=== PATIENT | male | born 2000 | race Caucasian/White ===

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

== ENCOUNTER 2022-01-03 13:54 | Emergency (ER) | payer MEDICAID, SELFPAY ==
[2022-01-03 14:14] VITALS: BP 134/73; PULSE 104; RESP 18; TEMP 36.6; O2SAT 97; BMI 16.9
--- NOTE | 2022-01-03 17:02 | ED.UPPEXIN ---
HPI - Extremity Injury (Upper) General Chief Complaint: Extremity Problem Stated Complaint: r middle finger inj Time Seen by Provider: 01/03/22 17:01 Source: patient Mode of arrival: ambulatory Limitations: no limitations History of Present Illness HPI narrative: 21-year-old male presents to the ER for evaluation of right middle finger nail bruising and detachment after he accidentally shot his finger in a door last week. He was seen here on 12/31, had negative x-rays. He was started on antibiotics for an early cellulitis. He has been taking them as directed. He reports since then he has had worsening swelling, pain and he can feel that the nail is detached from the nail bed. He is worried about ongoing infection and only has 1 day left of antibiotics. 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 He has not been wearing gloves at work. No new injuries. complaint: injury to: right and finger Onset (ago): day(s) Other Extremity Injury: right: fingers (Middle finger) Handedness: right Severity: moderate Severity scale (1-10): 7 Relieving factors: immobilization and other (Elevation) Exacerbating factors: movement of extremity Context: crush and injury Associated symptoms: denies other symptoms Related Data Previous Rx's Medication Instructions Recorded cephalexin 500 mg capsule 500 mg PO BID #14 caps 12/31/21 cephalexin 500 mg capsule 500 mg PO QID 5 days #20 caps 01/03/22 Allergies Allergy/AdvReac Type Severity Reaction Status Date / Time No Known Allergies Allergy Verified 12/31/21 17:50 Review of Systems Review of Systems: Constitutional: No Fever, No Chills Cardiovascular: No Chest Pain, No SOB Gastrointestinal: No Nausea, No Vomiting Musculoskeletal: + joint pain, No Myalgias Skin: No Skin Lesions, No rash Neuro: No Weakness, No Numbness, No Dizziness, No Headache Psych: + Anxiety/Panic, No Depression Heme/Lymph: + Bruising, No Lymphadenopathy PMFSH Social History Social History Advance Directives: No Advance Directives Information Provided: No Physical Exam Vital Signs: Vital Signs: Last Vital Signs Temp 98 F 01/03/22 14:14 Pulse 104 H 01/03/22 14:14 Resp 18 01/03/22 14:14 BP 134/73 01/03/22 14:14 Pulse Ox 97 01/03/22 14:14 O2 Del Method 01/03/22 14:14 BMI result Body Mass Index 16.9 Appearance: Alert. Oriented X3. No acute distress. HEENT: normal inspection CVS: Normal heart rate and rhythm. Pulses normal. Respiratory: No respiratory distress. Skin: Skin warm and dry. Normal skin color. Normal skin turgor. No rashes. Extremities: Left middle finger with moderate generalized swelling of the tip of the right finger, generalized ecchymosis involving the entire nail, extending laterally beyond the nail, swelling at the insertion of the nail bed with fluctuance and palpable mobile nail bed. Neuro: Oriented X 3. No motor deficit. No sensory deficit. Course Course Course Narrative: 21-year-old male presents to the ER for evaluation of ongoing and worsening left middle finger pain, swelling and bruising after he got his hand slammed in a door 6 days ago. X-ray on the showed no acute fracture. He has had worsening pain and swelling. On exam there is blood collections lateral to the nail bed and at the proximal nail bed. He can not palpate the nailbed is detached under the skin. Procedures Nail Trephination Time out: Yes Location (finger): right and middle Sterile prep: betadine Method of drainage: nail cautery Procedure successful: Yes Patient tolerated procedure: No Complications Discharge Plan Discharge Clinical Impression: Subungual hematoma of right middle finger Patient Disposition: Home, Self-Care Instructions: Subungual Hematoma (ED) Additional Instructions: Use warm soapy several times per day. Take the prescribed antibiotic as directed. If you develop new or worsening symptoms call 911 or come back to the ER for further evaluation. Prescriptions: New cephalexin 500 mg capsule 500 mg PO QID 5 Days Qty: 20 0RF No Action cephalexin 500 mg capsule 500 mg PO BID Qty: 14 0RF Interventions: ED Discharge Assessment Last Done: 01/03/22 17:43 Discharge Date/Time: 01/03/22 17:44
== END 2022-01-03 17:44 | disposition home or self-care (01) ==
PROVIDERS: Emergency Provider Emergency Medicine Emergency Medical Services
DX: M79.644 Pain in right finger(s) (principal); S60.131D Contusion of right middle finger with damage to nail, subsequent encounter; V48.3XXD Unspecified car occupant injured in noncollision transport accident in nontraffic accident, subsequent encounter
CPT/HCPCS: 11740; 99282; 99283; 99284

== ENCOUNTER 2023-11-04 19:22 | Emergency (ER) | payer OTHER, SELFPAY ==
--- NOTE | 2023-11-04 19:26 | ED_ITS ---
HPI - Wound/Laceration General Chief Complaint: Extremity Injury, Lower Stated Complaint: right foot lac Time Seen by Provider: 11/04/23 20:20 Source: patient Mode of arrival: ambulatory Limitations: no limitations History of Present Illness HPI narrative: Patient is a 22-year-old male who presents emergency department for evaluation of laceration to the right medial ankle. Reports that the corner of a metal doo r caught the side of his ankle just prior to arrival. Resulting in a laceration and reported pain. Related Data Previous Rx's ?Medication ?Instructions ?Recorded cephalexin 500 mg capsule 500 mg PO BID #14 caps 12/31/21 cephalexin 500 mg capsule 500 mg PO QID 5 days #20 caps 01/03/22 Allergies Allergy/AdvReac Type Severity Reaction Status Date / Time No Known Allergies Allergy Verified 11/04/23 19:31 Review of Systems Review of Systems: Yes all other systems are reviewed and are negative [facility] Past Medical History Attestation statement: The following information was validated with the patient. Source: old records reviewed Social History Social History Smoked in Last 30 Days: No Use of substances other than those prescribed or required for medical reasons: No Advance Directives: No Advance Directives Information Provided: No Do you have a plan to hurt others: No Plan Physical Exam Vital Signs: Vital Signs: Last Vital Signs Temp 98.2 F 11/04/23 22:36 Pulse 69 11/04/23 22:36 Resp 16 11/04/23 22:36 BP 105/56 L 11/04/23 22:36 Pulse Ox 98 11/04/23 22:36 O2 Del Method Room Air 11/04/23 22:36 BMI result Body Mass Index 22.7 Appearance: Alert.?Oriented to person, place and time. No acute distress.?Normal affect..?? CVS: Heart sounds normal. Normal heart rate and rhythm.? Pulses normal.?? Respiratory: No respiratory distress.? Lung sounds clear to auscultation bilaterally?? Abdomen: Soft and non-tender. Normoactive bowel sounds. ? Skin: Skin warm and dry.? Normal skin color.? 1 cm flap like laceration to the right lateral malleolus without active bleeding or acute osseous abnormality Extremities: No lower extremity edema.? Neuro: Moves all extremities spontaneously. Sensation intact bilaterally. Ambulates with normal steady gait. Course Course Course Narrative: This is a rapid medical exam performed by Samantha Truong NP: Additional HPI, ROS, PE not included below will be deferred to primary provider. Patient is a 22-year-old male UTD on tetanus presenting to the ED with complaint of laceration to right foot. Got foot caught in a metal door just [employer]. 1cm irregular laceration to lateral aspect of right ankle. Full ROM ankle. Plan: will need sutures Medications Administered Discontinued Medications Generic Name Dose Route Start Last Admin Trade Name Soni PRN Reason Stop Dose Admin Lidocaine HCl 5 ml 11/04/23 21:35 11/04/23 22:38 Lidocaine Hcl 1 % Mpf 5 Ml Vial SUBCUT 11/04/23 21:36 5 ml ONCE ONE Administration Medical Decision Making Medical Decision Making MDM Narrative: Patient is a 22-year-old male who presents emergency department for evaluation of right lateral malleolus laceration, currently without bleeding. Patient noted to have during triage a near syncope episode, reports that he was feeling very lightheaded once he looked at the blood on his ankle, was noted to be diaphoretic and hypotensive. He states this has happened in the past. Splint pressure has improved on re-evaluation, he has no longer diaphoretic, skin is normal in appearance, he is ambulatory with a steady gait without dizziness or lightheadedness. He has full range of motion to the left ankle. His tetanus vaccination is up-to-date. Do not suspect acute fracture dislocation as he is completely ambulatory. Laceration repaired under aseptic technique as per proce dural portion of this note and tolerated procedure well. Discussed appropriate conservative treatment, in addition to suture removal. All questions were answered. Stable for discharge. Procedures Laceration Laceration 1: Site: lower extremity Side (If applicable): right Size (cm): 1 Description: flap Depth: simple, single layer Local Anesthetic: lidocaine 1% Amount of anesthesia used (mL): 2 Pre-repair: wound explored, irrigated extensively and deep structures intact Skin layer closed with: nylon Size (cm): 4-0 Number of sutures: 3 Technique: simple, interrupted Discharge Plan Discharge Clinical Impression: Laceration of ankle Patient Disposition: Home, Self-Care Instructions: Laceration (ED) Additional Instructions: Your tetanus vaccine is updated today. 3 stitches will need to be removed in 7-10 days, you can return back to emergency department or follow-up with primary care doctor for removal. Prescriptions: No Action cephalexin 500 mg capsule 500 mg PO QID 5 Days Qty: 20 0RF cephalexin 500 mg capsule 500 mg PO BID Qty: 14 0RF Interventions: ED Discharge Assessment Last Done: 11/04/23 22:36 Discharge Date/Time: 11/04/23 22:37 Print Language: Angolan
[2023-11-04 19:27] VITALS: BP 86/32; PULSE 57; RESP 16; TEMP 36.4; O2SAT 99; BMI 22.7
[2023-11-04 19:46] VITALS: BP 105/48; PULSE 83; RESP 17; TEMP 36.9; O2SAT 99
[2023-11-04 22:36] VITALS: BP 105/56; PULSE 69; RESP 16; TEMP 36.8; O2SAT 98
[2023-11-04] MEDS: Lidocaine HCl 1 % MPF 5 ML VIAL SUBCUT (22:38)
--- NOTE | 2023-11-04 22:38 | PC.NURSE ---
Tdap not given because patient's vaccination status is up to date.
== END 2023-11-04 22:37 | disposition home or self-care (01) ==
PROVIDERS: Emergency Provider Internal Medicine
DX: S91.011A Laceration without foreign body, right ankle, initial encounter (principal); M25.571 Pain in right ankle and joints of right foot; W26.9XXA Contact with unspecified sharp object(s), initial encounter; Y93.9 Activity, unspecified; Y92.9 Unspecified place or not applicable; Y99.8 Other external cause status
CPT/HCPCS: 12031; 99284

== ENCOUNTER 2023-11-11 16:17 | Emergency (ER) | payer OTHER, SELFPAY ==
[2023-11-11 17:27] VITALS: BP 106/57; PULSE 88; RESP 16; TEMP 36.8; O2SAT 98; BMI 23.4
--- NOTE | 2023-11-11 17:29 | ED.GENADULT ---
HPI - General Adult General Chief complaint: General Medical Stated complaint: suture removal Time Seen by Provider: 11/11/23 17:28 Source: patient Mode of arrival: ambulatory Limitations: no limitations History of Present Illness ED Provider: diamond [facility] narrative: Patient is a 22-year-old male presenting to the ED for removal of sutures to right foot placed on 11/03 in this ED. Denies complications, discharge, drainage, fevers. MD complaint: suture removal Associated symptoms: denies other symptoms Treatments prior to arrival: none Related Data Previous Rx's ?Medication ?Instructions ?Recorded cephalexin 500 mg capsule 500 mg PO BID #14 caps 12/31/21 cephalexin 500 mg capsule 500 mg PO QID 5 days #20 caps 01/03/22 Allergies Allergy/AdvReac Type Severity Reaction Status Date / Time No Known Allergies Allergy Verified 11/11/23 17:29 Review of Systems Review of Systems: As per HPI. Yes all other systems are reviewed and are negative Constitutional: Constitutional: Reports as per HPI [facility] Social History Social History Advance Directives: No Advance Directives Information Provided: No Do you have a plan to hurt others: No Plan Physical Exam ED Vital Signs: Vital Signs - 24 hr 11/11/23 17:27 Temperature 98.3 F Pulse Rate 88 Respiratory Rate 16 Blood Pressure 106/57 L Pulse Oximetry 98 Oxygen Delivery Method Room Air BMI result Body Mass Index 23.4 Vital signs have been reviewed and appear to be correct. Blood pressure normal. Heart rate normal. Respiratory rate normal. Temperature normal. Oxygen saturation normal. Const General: cooperative, healthy appearing and no acute distress Orientation/consciousness: oriented to person, oriented to place, oriented to time and patient oriented x3 Limitations: no limitations HENMT Head: Yes normocephalic and Yes atraumatic Ears: external ears normal General nose exam: Normal external nose present Face and sinus: Yes face symmetric Mouth: oropharynx normal and moist mucous membranes Throat: Yes uvula midline Eyes Pupils: Equal, round and reactive pupils present Neck Neck: Yes normal visual inspection Resp Effort & Inspection: normal respiratory effort and able to speak in complete sentences Auscultation: clear to auscultation bilaterally Cardio Rate: regular rate Rhythm: regular rhythm Skin Other: 3 sutures intact to wound on right foot, no erythema, warmth, drainage General skin exam: elasticity normal and turgor normal Neuro General: oriented to person, oriented to place, oriented to time, patient oriented x3, moves all extremities, no focal motor deficits and CN's II-XI intact bilaterally Cranial nerves: Yes Equal, round and reactive pupils present Cognition (Neuro): normal cognition Extrem General: Yes full ROM, Yes no pedal edema and Yes no calf tenderness Psych Mental Status: mental status grossly normal Affect: normal affect Thought process: Normal thought process present Medical Decision Making Medical Decision Making [facility] Narrative: Patient is a 22-year-old male presenting to the ED for removal of sutures to right foot placed on 11/03 in this ED. On exam patient is awake, A+Ox3, VS WNL, afebrile, normal neurological exam without focal deficits, physical exam findings as above. Given reported symptoms and physical exam findings, initial differential includes suture removal, cellulitis. 3 sutures removed without difficulty with success. Discussed ongoing wound care and reasons for return to ED. Patient verbalized understanding of and agreement with plan. Differential Diagnosis Differential Diagnoses: The differential diagnosis associated with the presentation includes As per [facility] External Record Review External record reviewed: Inpatient record, Office record and Outpatient record Discharge Plan Discharge Clinical Impression: Visit for suture removal Patient Disposition: Home, Self-Care Instructions: Stitches Removal (ED) Additional Instructions: You were seen in the emergency department today and had 3 sutures (stitches) removed. You should continue to cover the area with a bandaid until the wound is fully healed. Avoid submerging your foot in water, especially outdoor water, until the wound is fully healed. Assess the area daily for any new redness, swelling, or thick yellow drainage and return if this occurs. Prescriptions: No Action cephalexin 500 mg capsule 500 mg PO QID 5 Days Qty: 20 0RF cephalexin 500 mg capsule 500 mg PO BID Qty: 14 0RF Print Language: Slovak
[2023-11-11 17:41] VITALS: BP 106/57; PULSE 88; RESP 16; TEMP 36.8; O2SAT 98
== END 2023-11-11 17:43 | disposition home or self-care (01) ==
PROVIDERS: Emergency Provider Internal Medicine
DX: Z48.02 Encounter for removal of sutures (principal)
CPT/HCPCS: 99282

== ENCOUNTER 2023-12-14 09:58 | Emergency (ER) | payer OTHER, SELFPAY ==
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
[2023-12-14 10:04] VITALS: BP 105/78; PULSE 91; RESP 16; TEMP 36.9; O2SAT 99; BMI 22.5
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
[2023-12-14] MEDS: Lidocaine HCl 1 % MPF 2 ML VIAL INFILTRATI ×3 (10:48)
[2023-12-14] MEDS: Bacitracin Oint 0.9 GM PACKET 1 APPL TOPICAL (11:17)
[2023-12-14 11:25] VITALS: BP 109/56; PULSE 93; RESP 18; TEMP 36.9; O2SAT 95
== END 2023-12-14 11:27 | disposition home or self-care (01) ==
PROVIDERS: Emergency Provider Emergency Medicine
DX: S81.011A Laceration without foreign body, right knee, initial encounter (principal); M79.604 Pain in right leg; V43.52XA Car driver injured in collision with other type car in traffic accident, initial encounter; Y93.89 Activity, other specified; Y92.488 Other paved roadways as the place of occurrence of the external cause; Y99.8 Other external cause status
CPT/HCPCS: 12002; 73564; 99282; 99284

== ENCOUNTER 2023-12-24 16:08 | Emergency (ER) | payer OTHER, SELFPAY ==
[2023-12-24 16:23] VITALS: BP 133/61; PULSE 69; RESP 16; TEMP 36.9; O2SAT 98; BMI 16.2
--- NOTE | 2023-12-24 16:24 | ED_ITS ---
HPI - General Adult General Chief complaint: Wound/Laceration Stated complaint: needs stitches removed Time Seen by Provider: 12/24/23 16:23 Source: patient Mode of arrival: ambulatory Limitations: no limitations History of Present Illness ED Provider: Ciaran THIBODEAUX HPI narrative: 23 yoa M otherwise healthy presenting to the ED for suture removal of stitches in right knee, placed 10 days ago. Denies fevers, chills, pain out of proportion, drainage from area. Related Data Previous Rx's ?Medication ?Instructions ?Recorded cephalexin 500 mg capsule 500 mg PO BID #14 caps 12/31/21 cephalexin 500 mg capsule 500 mg PO QID 5 days #20 caps 01/03/22 Allergies Allergy/AdvReac Type Severity Reaction Status Date / Time No Known Allergies Allergy Verified 12/24/23 16:25 Review of Systems Review of Systems: Yes all other systems are reviewed and are negative [facility] Past Medical History Attestation statement: The following information was validated with the patient. Source: old records reviewed and nursing notes reviewed Social History Social History Advance Directives: No Advance Directives Information Provided: No Physical Exam ED Vital Signs: Vital Signs - 24 hr 12/24/23 16:23 12/24/23 17:00 Temperature 98.5 F 0 F L Pulse Rate 69 0 L Respiratory Rate 16 0 L Blood Pressure 133/61 0/0 L Pulse Oximetry 98 Oxygen Delivery Method Room Air BMI result Body Mass Index 16.2 vss Appearance: Alert.? Oriented X3.? No acute cardiopulmonary distress distress.? Head: Normocephalic, atraumatic, no step-offs or deformities Neck: Normal inspection.? Neck supple.? CVS: Pulses normal.? Respiratory: No respiratory distress.? Abdomen: Soft and nontender.? Skin: ? Normal skin color. + 7 sutures to right knee with a well healing lac. no erythema or warmth overlying no dc Extremities: 5/5 strength to bilateral upper and lower extremities Back: No midline tenderness, no C-spine tenderness, full range of motion, No CVA tenderness bilaterally Neuro: Oriented X 3.? No motor deficit.? No sensory deficit. Medical Decision Making Medical Decision Making [facility] Narrative: 23-year-old male presents with sutures to left knee that need to be removed. Physical exam intact sutures no signs of infection no abscess. Plan suture removal. Educated patient on diagnosis and treatment plan, answered all question, patient verbalizes understanding. At this time patient will be discharged home, advised to return with new or worsening symptoms. Educated on worrisome signs and symptoms and when to return. At this time I feel comfortable discharge home. Differential Diagnosis Differential Diagnoses: The differential diagnosis associated with the presentation includes Normal wound healing. No signs of infection, abscess or cellulitis Admission/Observation Consideration of admission/observation: Escalation of care including admission/observation considered Discharge Plan Discharge Clinical Impression: Visit for suture removal Patient Disposition: Home, Self-Care Additional Instructions: Take your medications as prescribed. If you were prescribed antibiotics today, it is important that you take your medication to their entirety, do not skip any doses, do not finish them early. Follow-up with your primary care provider this week. Return to the emergency department with new or worsening symptoms. Such as fevers, chills, chest pain, shortness of breath, nausea, vomiting, dizziness, headache, vision changes, lethargy In case of emergency call 911 Prescriptions: No Action cephalexin 500 mg capsule 500 mg PO QID 5 Days Qty: 20 0RF cephalexin 500 mg capsule 500 mg PO BID Qty: 14 0RF Interventions: ED Discharge Assessment Last Done: 12/24/23 17:00 Discharge Date/Time: 12/24/23 17:01 Print Language: Korean
[2023-12-24 17:00] VITALS: BP 0/0; PULSE 0; RESP 0; TEMP -17.7; TEMP 0
== END 2023-12-24 17:01 | disposition home or self-care (01) ==
PROVIDERS: Emergency Provider Internal Medicine
DX: Z48.02 Encounter for removal of sutures (principal)
CPT/HCPCS: 99282

== ENCOUNTER 2024-05-17 18:44 | Inpatient (IN) | payer OTHER, SELFPAY ==
--- NOTE | ~2024-05-17 | XR_ITS ---
CLINICAL HISTORY: thumb thenar swelling pain. osteo? fracture? 3 view right hand 1 view right wrist Comparison: None Findings: Bones intact. No dislocations. No significant arthritic change. No erosions. No radiopaque foreign body. IMPRESSION: 1. No acute findings This document has been electronically signed by: Apple Thao MD on 05/17/2024 19:31:22
[2024-05-17 18:53] VITALS: BP 127/72; PULSE 117; RESP 20; TEMP 37.5; O2SAT 99; BMI 22.1
--- NOTE | 2024-05-17 18:58 | ED.GENADULT ---
HPI - General Adult General Chief complaint: Extremity Problem Stated complaint: R hand pain/swelling Time Seen by Provider: 05/18/24 00:27 Source: patient Mode of arrival: ambulatory Limitations: no limitations History of Present Illness ED Provider: ALEA HPI narrative: 23 yo male with no PMH no IVDA R hand dominant here with c/o R hand pain that has worsened over 10 days. Pushed hard on a metal pole but no FB or puncture no bleeding. He notes over the past couple of days it has gotten more swollen, red, and he has a hard time moving his R thumb. He denies any fevers, n/v/d. Pain feels tight and hurts. complaint: R hand swelling/pain Onset (ago): day(s) (10) Location: right and upper extremity Radiation: non-radiation Severity: moderate Quality: aching Pain Consistency: intermittent Relieving factors: immobilization Exacerbating factors: movement Associated symptoms: rash Treatments prior to arrival: none Related Data Home Medications ?Medication ?Instructions ?Recorded ?Confirmed No Known Home Meds 05/18/24 05/18/24 Allergies Allergy/AdvReac Type Severity Reaction Status Date / Time No Known Allergies Allergy Verified 05/17/24 18:56 Review of Systems Review of Systems: Constitutional : No Fever, No Chills ENT/Mouth : No sore throat, No Rhinorrhea Eyes: No Eye Pain, No Swelling, No Redness Cardiovascular : No Chest Pain, No SOB Respiratory : No Cough, No Sputum Gastrointestinal : No Nausea, No Vomiting, No Diarrhea, No abdominal Pain Genitourinary : No Dysuria, No Hematuria Musculoskeletal : pos joint pain, No Myalgias, No Joint Swelling Skin : No Skin Lesions, positive skin rash Neuro : No Weakness, No Numbness, No Headache Psych : No Anxiety, No Depression All other systems reviewed and are negative [facility] Past Medical History Attestation statement: The following information was validated with the patient. Source: old records reviewed Medical History (Updated 05/18/24 @ 08:53 by WARNER Castellanos) No pertinent past medical history Social History Social History Household Members: Family Housing: House Do you presently have visiting nurse or other home services: No Patient Tobacco Use Status: Never used Tobacco Smoked in Last 30 Days: No Use of substances other than those prescribed or required for medical reasons: No Have you been hit, kicked, punched, or otherwise hurt by someone within the past year? If so, by whom?: No Advance Directives: No Advance Directives Information Provided: No Do you have a plan to hurt others: No Plan Recently lost weight without trying: No Nutrition Risks: No Nutritional Risk Poor oral hygiene: No Physical Exam ED Vital Signs: Vital Signs - 24 hr 05/17/24 18:53 05/17/24 21:49 05/18/24 01:10 Temperature 99.5 F 98.6 F 98.1 F Pulse Rate 117 H 100 67 Respiratory Rate 20 20 17 Blood Pressure 127/72 116/71 135/68 Pulse Oximetry 99 97 100 Oxygen Delivery Method Room Air Room Air Room Air BMI result Body Mass Index 22.1 Appearance: Alert. Oriented X3. No acute distress. Eyes: Pupils equal, round and reactive to light. ENT: Pharynx normal. Neck: Normal inspection. Neck supple. CVS: Normal heart rate and rhythm. Pulses normal. Respiratory: No respiratory distress. Breath sounds normal. Abdomen: Soft and nontender. Skin: Skin warm and dry. Normal skin color. Normal skin turgor. Extremities: No lower extremity edema. R hand thenar eminence red, warm tracks through thumb and index webspace Neuro: Oriented X 3. No motor deficit. No sensory deficit. CN2-12 intact Course Course Course Narrative: RME: 23-year-old male presents to the ED for right thumb swelling and thenar swelling with limited range of motion for 1 week. Patient states he was doing some [employer] work since last weekend then started having some swelling. Patient denies any blunt trauma to the area. Positive for some redness and warmth. Labs x-ray ordered. Medications Administered Generic Name Dose Route Start Last Admin Trade Name Freq PRN Reason Stop Dose Admin Piperacillin Sod/Tazobactam 50 mls @ 100 mls/hr 05/18/24 08:00 05/18/24 08:34 Sod 3.375 gm/ Sodium Chloride IV Infused Q6H MICHA Infusion Ibuprofen 600 mg 05/18/24 01:45 05/18/24 07:17 Ibuprofen 600 Mg Tablet PO 05/18/24 21:01 600 mg TID MICHA Administration Sodium Chloride 3 ml 05/18/24 08:00 05/18/24 07:22 0.9 % Sodium Chloride Flush 3 Ml Syringe IVFLUSH 3 ml QSHIFT MICHA Administration Discontinued Medications Generic Name Dose Route Start Last Admin Trade Name Soni PRN Reason Stop Dose Admin Diphenhydramine HCl 50 mg 05/18/24 02:42 05/18/24 02:43 Diphenhydramine Hcl 50 Mg/Ml Vial IVPUSH 05/18/24 02:43 50 mg ONCE ONE Administration Piperacillin Sod/Tazobactam 50 mls @ 100 mls/hr 05/18/24 00:50 05/18/24 01:48 Sod 3.375 gm/ Sodium Chloride IV 05/18/24 01:19 Infused ONCE ONE Infusion Vancomycin HCl 1,000 mg/ 535 mls @ 267.5 mls/hr 05/18/24 00:50 05/18/24 02:43 Vancomycin HCl 750 mg/ Sodium IV 05/18/24 02:49 Infused Chloride ONCE ONE Infusion Ketorolac Tromethamine 15 mg 05/18/24 00:51 05/18/24 01:03 Ketorolac Tromethamine 15 Mg/Ml Vial IVPUSH 05/18/24 00:52 15 mg ONCE ONE Administration Medical Decision Making Medical Decision Making MDM Narrative: 23 yo male who is R handed here with c/o worsening redness, swelling and pain after pushing hard on a pole - no FB noted, no puncture at that time but on exam today there is a concern for limited movement of thumb due to swelling, he has no systemic symptoms - will obtain labs, xray and start on IV zosyn and vancomycin. Will discuss with hand Differential Diagnosis Differential Diagnoses: The differential diagnosis associated with the presentation includes FB, cellulitis, abscess Admission/Observation Consideration of admission/observation: Escalation of care including admission/observation considered admit for IV abx Consult Healthcare Provider Management of the patient was discussed with: Hospitalist (will admit) and Field Marketing Associate orthopedics maik HYLTON - admit to medicine and attending will see later Lab Data MDM Lab Attestation statement: I reviewed the patient's lab results. 05/18/24 04:14 05/18/24 04:14 Labs: Lab Results 05/17/24 05/17/24 Range/Units 19:49 19:50 WBC 12.2 H (4.8-10.8) X10*3/uL RBC 5.36 (4.60-5.80) X10*6/uL Hgb 16.2 (14.0-18.0) g/dl Hct 46.5 (42.0-52.0) % MCV 86.8 (80.0-98.0) fL MCH 30.2 (27.0-33.0) pg MCHC 34.8 (31.0-36.0) g/dl RDW 12.4 (11.0-16.0) % Plt Count 211 (160-400) X10*3/uL MPV 11.9 (9.4-12.4) fL Immature Gran % (Auto) 0.3 (0.0-0.4) % Neut % (Auto) 76.3 H (45-73) % Lymph % (Auto) 16.5 L (20-40) % Hand % (Auto) 6.0 (2-11) % Eos % (Auto) 0.6 (0-4) % Baso % (Auto) 0.3 (0-2) % Lymph # (Auto) 2.0 (1.2-4.9) X10*3/uL Hand # (Auto) 0.7 (0.1-1.2) X10*3/uL Eos # (Auto) 0.1 (0.0-0.4) X10*3/uL Baso # (Auto) 0.0 (0.0-0.2) X10*3/uL Abs Immat Gran (auto) 0.04 H (0.00-0.03) X10*3/uL Absolute Neuts (auto) 9.3 H (2.0-8.3) x10*3/uL Absolute Nucleated RBC 0.000 (0.0-0.012) X10*3/uL Nucleated RBC % (auto) 0.0 (0.0-0.2) /100WBC ESR 2 (0-15) MM/HR Sodium 140 (135-145) mmol/L Potassium 3.5 (3.3-5.1) mmol/L Chloride 105 (96-108) mmol/L Carbon Dioxide 26 (22-29) mmol/L Anion Gap 13 (12-20) BUN 13 (9-16) mg/dL Creatinine 1.02 (0.5-1.4) mg/dL Estim Creat Clear Calc 110.2 Estimated GFR > 60 Random Glucose 90 (60-115) mg/dL Lactic Acid 0.9 (0.5-2.0) mmol/L Uric Acid 6.7 (3.4-7.0) mg/dL Calcium 9.7 (8.4-10.2) mg/dL Total Bilirubin 0.8 (0.0-1.0) mg/dL AST 24 (5-37) U/L ALT 15 (0-40) U/L Alkaline Phosphatase 68 (39-117) U/L C-Reactive Protein 0.48 (< or = 0.50) mg/dL Total Protein 8.2 H (6.5-8.0) g/dL Albumin 4.8 (3.5-5.0) g/dL Independent Interpretation I performed an independent interpretation of an: Plain X-Ray (no fb) Radiology Impression Discussion of test interpretation with radiology: I have reviewed the radiologist's reading. Discharge Plan Discharge Clinical Impression: Infection of hand Patient Disposition: Admitted As Inpatient
--- NOTE | 2024-05-17 19:52 | MHC.EDTECH ---
Patient brought into triage area,both sets of blood cultures and labs drawn and sent to lab
[2024-05-17 19:58] LABS: MANUAL DIFF FLAG NO
[2024-05-17 20:00] LABS: Basophils Percent Auto 0.3 % (0-2); Eosinophils Absolute Auto 0.1 X10*3/uL (0.0-0.4); Eosinophils Percent Auto 0.6 % (0-4); Hematocrit 46.5 % (42.0-52.0); Hemoglobin 16.2 g/dl (14.0-18.0); Imm Gran Abs Auto 0.04 X10*3/uL (0.00-0.03); Imm Gran Pct Auto 0.3 % (0.0-0.4); Lymphocytes Percent Auto 16.5 % (20-40); Mean Corpuscular HGB Conc 34.8 g/dl (31.0-36.0); Mean Corpuscular Hemoglobin 30.2 pg (27.0-33.0); Mean Corpuscular Volume 86.8 fL (80.0-98.0); Mean Platelet Volume 11.9 fL (9.4-12.4); Monocytes Absolute Auto 0.7 X10*3/uL (0.1-1.2); Neutrophils Absolute Auto 9.3 x10*3/uL (2.0-8.3); Neutrophils Percent Auto 76.3 % (45-73); Platelet Count 211 X10*3/uL (160-400); Red Blood Count 5.36 X10*6/uL (4.60-5.80); Red Cell Distribution Width 12.4 % (11.0-16.0); White Blood Count 12.2 X10*3/uL (4.8-10.8)
[2024-05-17 20:15] LABS: Lactic Acid 0.9 mmol/L (0.5-2.0)
[2024-05-17 20:22] LABS: Uric Acid 6.7 mg/dL (3.4-7.0)
[2024-05-17 20:24] LABS: Alkaline Phosphatase 68 U/L (39-117)
[2024-05-17 20:28] LABS: Alanine Aminotransferase 15 U/L (0-40); Albumin Level 4.8 g/dL (3.5-5.0); Anion Gap 13 (12-20); Aspartate Amino Transferase 24 U/L (5-37); Bilirubin Total 0.8 mg/dL (0.0-1.0); Blood Urea Nitrogen 13 mg/dL (9-16); C Reactive Protein 0.48 mg/dL (< or = 0.50); Calcium 9.7 mg/dL (8.4-10.2); Carbon Dioxide 26 mmol/L (22-29); Chloride 105 mmol/L (96-108); Creatinine Clr Calc Pharmacy 110.2; Estimated Glomerular Filt Rate > 60; Glucose Random 90 mg/dL (60-115); Potassium 3.5 mmol/L (3.3-5.1); Sodium 140 mmol/L (135-145); Total Protein 8.2 g/dL (6.5-8.0)
[2024-05-17 20:39] LABS: Erythrocyte Sedimentation Rate 2 MM/HR (0-15)
[2024-05-17 21:49] VITALS: BP 116/71; PULSE 100; RESP 20; TEMP 37; O2SAT 97
--- NOTE | 2024-05-17 23:56 | PC.NURSE ---
pt a&ox4, respirations even and unlabored. pt reporting onset of right hand pain and swelling which has increased since last week. pt unable to move hand with limited movements. pt denies fever chills nausea and vomiting. denies trauma to area.
[2024-05-18] VITALS (9 sets, daily range): BP systolic 102–135; BP diastolic 54–71; PULSE 67–93; RESP 16–22; TEMP 36.3–37.1; O2SAT 96–100; BMI 22.2
[2024-05-18] MEDS: Ketorolac Tromethamine 15 MG/ML VIAL IVPUSH (01:03)
[2024-05-18] MEDS: Piperacillin Sodium/Tazobactam 3.375 GM in 0.9 % Sodium Chloride 50 ML IV ×4 (01:04→20:38)
--- NOTE | 2024-05-18 01:20 | PC.NURSE ---
20G placed in left forearm, pt medicated per jul for 8/10 hand pain, antibiotics administered.
[2024-05-18] MEDS: vancomycin HCL 1,000 MG, vancomycin HCL 750 MG in 0.9 % Sodium Chloride 500 ML 267.5 MG IV (01:42)
--- NOTE | 2024-05-18 01:46 | P.HPHOSP_ITS ---
History of Present Illness Date of Service: 05/18/24 Attending physician on admission: Froy Butcher Chief Complaint: Right hand swelling Arnaldo Graves is a 23 years old man with home significant past medical history presents to the emergency department complaining of one-week history of right hand pain associated with swelling and redness. He stated prior to the symptoms he was pushing on a pole while building shelves last weekend. He denied discharges or associated wounds. He also denies fever or chills. He did not report any acute cardiopulmonary, gastrointestinal or genitourinary symptoms. In the ED, he was found to have normal vital signs. Blood workup is remarkable for leukocytosis of 12.2. Hemoglobin and platelets are normal. Electrolytes, renal function, uric acid, CRP and LFTs are normal. Right hand CXR showed both intact bones, no dislocation no arthritic changes no erosions or radiopaque foreign bodies. ED tx: Zosyn 3.375 g, ketorolac 15 mg IV, vancomycin 1750 mg IV Review of Systems 2 Review of Systems: All 12 systems were reviewed and normal except as noted in HPI. [facility] Medical History (Updated 05/18/24 @ 02:34 by Froy Butcher MD) No pertinent past medical history Social History Smoked in Last 30 Days: No Use of substances other than those prescribed or required for medical reasons: No Advance Directives: No Advance Directives Information Provided: No Meds Allergies Allergy/AdvReac Type Severity Reaction Status Date / Time No Known Allergies Allergy Verified 05/17/24 18:56 Active Medications: Current Medications Acetaminophen (Acetaminophen 325 Mg Tablet) 975 mg PO Q6H PRN PRN Reason: Pain, Mild 1-3,fever,headache Vancomycin HCl 1,000 mg/Vancomycin HCl 750 mg/ Sodium Chloride 535 mls @ 267.5 mls/hr IV ONCE ONE Stop: 05/18/24 02:49 Last Admin: 05/18/24 01:42 Dose: 267.5 mls/hr Piperacillin Sod/Tazobactam (Sod 3.375 gm/ Sodium Chloride) 50 mls @ 100 mls/hr IV Q6H MICHA Ibuprofen (Ibuprofen 600 Mg Tablet) 600 mg PO TID MICHA Stop: 05/18/24 21:01 Pharmacy Consult (Consult Rx Vancomycin Dosing) 1 each MISCELLANE DAILY PRN PRN Reason: Consult order Pharmacy Consult (Consult Rx Vancomycin Dosing) 1 each MISCELLANE DAILY PRN PRN Reason: Consult order Sodium Chloride (0.9 % Sodium Chloride Flush 3 Ml Syringe) 3 ml IVFLUSH QSHIFT MICHA Physical Exam 2 Vital Signs and Narrative: Vital Signs: Last Vital Signs Temp 98.1 F 05/18/24 01:10 Pulse 67 05/18/24 01:10 Resp 17 05/18/24 01:10 BP 135/68 05/18/24 01:10 Pulse Ox 100 05/18/24 01:10 O2 Del Method Room Air 05/18/24 01:10 BMI result Body Mass Index 22.1 Constitutional - Awake and Alert, No apparent distress. Afebrile. Cooperative. Pleasant. HEENT - PERRL, EOMI Heart - S1S2, RRR, No murmurs. Lungs - Normal lung expansion, Normal respiratory effort, No respiratory distress, CTA bilaterally Abdomen - NT / ND; +BS; No rebound or guarding Extremities - right hand: thenar area is edematous and erythematous with increased warmth. ROM is limied due to pain but complete. Musculoskeletal - Normal inspection, normal ROM Skin - Warm/Dry Neurological - Alert & oriented x3. No focal weakness grossly noted. Normal speech. Psychological - Appropriate affect Results Labs 05/17/24 19:50 05/17/24 19:50 Labs: Laboratory Results - last 24 hr 05/17/24 05/17/24 19:49 19:50 MCV 86.8 MCH 30.2 MCHC 34.8 RDW 12.4 Plt Count 211 MPV 11.9 Immature Gran % (Auto) 0.3 Neut % (Auto) 76.3 H Lymph % (Auto) 16.5 L [place] % (Auto) 6.0 Eos % (Auto) 0.6 Baso % (Auto) 0.3 Lymph # (Auto) 2.0 [place] # (Auto) 0.7 Eos # (Auto) 0.1 Baso # (Auto) 0.0 Abs Immat Gran (auto) 0.04 H Absolute Neuts (auto) 9.3 H Absolute Nucleated RBC 0.000 Nucleated RBC % (auto) 0.0 ESR 2 Anion Gap 13 Estim Creat Clear Calc 110.2 Estimated GFR > 60 Random Glucose 90 Lactic Acid 0.9 Uric Acid 6.7 Calcium 9.7 Total Bilirubin 0.8 AST 24 ALT 15 Alkaline Phosphatase 68 C-Reactive Protein 0.48 Total Protein 8.2 H Albumin 4.8 Assessment and Plan (1) Infection of hand: Status: Acute (2) Leukocytosis: Qualifiers: Leukocytosis type: unspecified Qualified Code(s): D72.829 - Elevated white blood cell count, unspecified Status: Acute Plan Arnaldo Graves is a 23 y/o man admitted with: * Right hand cellulitis. Admit to hospitalist service. Continue empiric IV antibiotic therapy with vancomycin and Zosyn. Apply ice q shift. Motrin 600 mg PO tid. Orthopedic surgery consult. * Leukocytosis, secondary to above. Continue monitor. DVT prophylaxis: Low risk, ambulation Code status: Full Patient will need hospitalization for at least 2 midnights for IV antibiotic therapy and evaluation by Orthopedic surgery Service. Quality Stroke Does the patient have a stroke diagnosis?: No VTE Prior VTE?: No VTE Risk Level:: Medical - moderate - high VTE Device Contraindication: Treatment Not Indicated VTE Drug Contraindication: Treatment Not Indicated
[2024-05-18] MEDS: Ibuprofen 600 MG TABLET PO ×4 (02:06→20:39)
[2024-05-18] MEDS: diphenhydrAMINE HCL 50 MG/ML VIAL IVPUSH (02:43)
--- NOTE | 2024-05-18 02:44 | PC.NURSE ---
pt noted to have hives to bilateral arms at this time, pt denies any sob, chest pain and throat swelling. pt speaking in full clear sentences. aware, vanco stopped, pt medicated per jul with benedryl.
--- NOTE | 2024-05-18 04:28 | PC.NURSE ---
pt arms noted to be clear with no hives noted, pt denies sob/throat issues at this time.
[2024-05-18 04:55] LABS: MANUAL DIFF FLAG NO
[2024-05-18 04:57] LABS: Basophils Percent Auto 0.3 % (0-2); Eosinophils Absolute Auto 0.1 X10*3/uL (0.0-0.4); Eosinophils Percent Auto 1.2 % (0-4); Hematocrit 43.2 % (42.0-52.0); Hemoglobin 14.9 g/dl (14.0-18.0); Imm Gran Abs Auto 0.03 X10*3/uL (0.00-0.03); Imm Gran Pct Auto 0.3 % (0.0-0.4); Lymphocytes Absolute Auto 2.2 X10*3/uL (1.2-4.9); Lymphocytes Percent Auto 19.8 % (20-40); Mean Corpuscular HGB Conc 34.5 g/dl (31.0-36.0); Mean Corpuscular Hemoglobin 30.5 pg (27.0-33.0); Mean Corpuscular Volume 88.5 fL (80.0-98.0); Mean Platelet Volume 12.4 fL (9.4-12.4); Monocytes Absolute Auto 0.7 X10*3/uL (0.1-1.2); Monocytes Percent Auto 6.8 % (2-11); Neutrophils Absolute Auto 7.8 x10*3/uL (2.0-8.3); Neutrophils Percent Auto 71.6 % (45-73); Platelet Count 184 X10*3/uL (160-400); Red Blood Count 4.88 X10*6/uL (4.60-5.80); Red Cell Distribution Width 12.4 % (11.0-16.0); White Blood Count 10.9 X10*3/uL (4.8-10.8)
[2024-05-18 05:13] LABS: Anion Gap 11 (12-20); Blood Urea Nitrogen 14 mg/dL (9-16); Carbon Dioxide 24 mmol/L (22-29); Chloride 106 mmol/L (96-108); Creatinine Clr Calc Pharmacy 130.7; Estimated Glomerular Filt Rate > 60; Glucose Random 99 mg/dL (60-115); Potassium 3.4 mmol/L (3.3-5.1); Sodium 138 mmol/L (135-145)
--- NOTE | 2024-05-18 06:55 | PHA.PROG ---
Admission Date/Time: May 18, 2024 01:23 Indication: skin Weight in k.039 kg Adjusted body weight in Kg: [place] body weight in Kg: Obesity Dosing Indication % IBW: Serum Creatinine - Last 168 Hours 05/17/24 05/18/24 19:50 04:14 Creatinine 1.02 0.86 Estimated CrCl and GFR - Last 168 Hours 05/17/24 05/18/24 19:50 04:14 Estim Creat Clear Calc 110.2 130.7 Estimated GFR > 60 > 60 Vancomycin Loading Dose: 1750 Current Vancomycin Dosing Regimen: 1250 Q12H Vancomycin Monitoring using AUC goal of 400 - 600 range with trough as surrogate marker: 518 Date and Time for next Vancomycin Level to be drawn: 05/19 @1200 Pharmacist Comments on Vancomycin Plan: Vancomycin dosing will take advantage of 1calendar as a clinical decision support tool that uses Bayesian modeling to calculate individual patient's pharmacokinetic parameters and forecast the patient's drug concentration time course with the target goal AUC 24 range of 400 - 600 mg/L/hr.
[2024-05-18] MEDS: 0.9 % Sodium Chloride Flush 3 ML SYRINGE IVFLUSH ×2 (07:22→15:21)
--- NOTE | 2024-05-18 08:13 | P.CONOP_ITS ---
History of Present Illness HPI Consult date: 05/18/24 Chief complaint: Right hand cellulitis Narrative: Patient is a 23-year-old male presents to the hospital for evaluation redness, swelling, pain of the right hand, particularly of the thenar eminence Patient reports that this has been ongoing for several days, and has worsened over that time Patient reports that there has been no open wounds or lacerations that he is aware up to this area, but states that approximately 10 days ago he was pushing down with significant pressure onto a small hollow pipe with this area of his hand Patient states that he is able to flex and extend the right thumb, but states that it does cause him some discomfort Denies any history of IV drug use No other lacerations or wounds to this area that the patient was aware of Denies any numbness or tingling in the right upper extremity No other acute complaints or concerns at this time PMFSH Past Medical History Medical History (Updated 05/18/24 @ 08:53 by WARNER Castellanos) No pertinent past medical history Social History Social History Household Members: Family Housing: House Do you presently have visiting nurse or other home services: No Patient Tobacco Use Status: Never used Tobacco Smoked in Last 30 Days: No Use of substances other than those prescribed or required for medical reasons: No Have you been hit, kicked, punched, or otherwise hurt by someone within the past year? If so, by whom?: No Advance Directives: No Advance Directives Information Provided: No Do you have a plan to hurt others: No Plan Recently lost weight without trying: No Nutrition Risks: No Nutritional Risk Poor oral hygiene: No Meds Allergies Allergy/AdvReac Type Severity Reaction Status Date / Time No Known Allergies Allergy Verified 05/17/24 18:56 Active Medications: Current Medications Acetaminophen (Acetaminophen 325 Mg Tablet) 975 mg PO Q6H PRN PRN Reason: Pain, Mild 1-3,fever,headache Piperacillin Sod/Tazobactam (Sod 3.375 gm/ Sodium Chloride) 50 mls @ 100 mls/hr IV Q6H MICHA Last Admin: 05/18/24 07:17 Dose: 100 mls/hr Vancomycin HCl 1,250 mg/ (Sodium Chloride) 250 mls @ 166.667 mls/hr IV Q12H MICHA Ibuprofen (Ibuprofen 600 Mg Tablet) 600 mg PO TID [facility] Stop: 05/18/24 21:01 Last Admin: 05/18/24 07:17 Dose: 600 mg Pharmacy Consult (Consult Rx Vancomycin Dosing) 1 each MISCELLANE DAILY PRN PRN Reason: Consult order Sodium Chloride (0.9 % Sodium Chloride Flush 3 Ml Syringe) 3 ml IVFLUSH QSHIFT [facility] Last Admin: 05/18/24 07:22 Dose: 3 ml Home Medications ?Medication ?Instructions ?Recorded ?Confirmed ?Last Taken ?Type No Known Home Meds 05/18/24 05/18/24 Unknown History Physical Exam 2 Vital Signs: Vital Signs: Last Vital Signs Temp 98.6 F 05/18/24 06:16 Pulse 84 05/18/24 06:16 Resp 16 05/18/24 06:16 BP 102/63 05/18/24 06:16 Pulse Ox 98 05/18/24 06:16 O2 Del Method Room Air 05/18/24 06:16 BMI result Body Mass Index 22.1 Extrem: Other: Patient is alert, oriented, and in no acute distress. Neuro: Normal sensation of the tips of all digits of the right hand at this time Vascular: Cap refill brisk Pain: Patient reports significant tenderness to palpation of the thenar eminence of the right hand No tenderness to palpation of the flexor tendon of the right thumb ROM: Patient is able to flex and extend the right thumb with minimal discomfort Patient is able to flex and extend all other digits of the right hand fully and without difficulty Skin: No lacerations or abrasions. General: There is noted to be an area of significant edema and erythema noted in the thenar eminence of the patient's right hand There is an area of fluctuance at the center of this edematous and erythematous area Psych: Appears grossly normal Affect normal Attitude cooperative Results Labs 05/18/24 04:14 05/18/24 04:14 Labs: Abnormal lab results 05/17/24 05/18/24 Range/Units 19:50 04:14 WBC 12.2 H 10.9 H (4.8-10.8) X10*3/uL Neut % (Auto) 76.3 H (45-73) % Lymph % (Auto) 16.5 L 19.8 L (20-40) % Abs Immat Gran (auto) 0.04 H (0.00-0.03) X10*3/uL Absolute Neuts (auto) 9.3 H (2.0-8.3) x10*3/uL Anion Gap 11 L (12-20) Total Protein 8.2 H (6.5-8.0) g/dL H & H 05/17/24 05/18/24 Range/Units 19:50 04:14 Hgb 16.2 14.9 (14.0-18.0) g/dl Hct 46.5 43.2 (42.0-52.0) % All other labs normal. Diagnostic results Wrist/Hand x-ray: report reviewed and image reviewed (X-rays obtained in the ED today and independently reviewed by me, Jimmy Donato PA-C, demonstrate significant soft tissue swelling in the thenar eminence of the right, but no acute fracture, bony abnormality, or foreign body noted. ) Assessment and Plan (1) Abscess of right hand: Status: Acute Plan 1. Abscess of right hand No evidence of flexor tenosynovitis at this time I educated the patient about the condition. I discussed both operative and nonoperative treatment options. The patient would like to proceed with surgery. The risks and benefits of operative treatment were discussed with the patient and the patient wishes to proceed with surgery. These risks include, but are not limited to, risk of damage to blood vessels, nerves, tendons, infection, recurrence, incomplete relief of preoperative symptoms, persistent pain, possible need for further surgery, and the risks associated with regional blocks and/or anesthesia. Plan is to take the patient to the operating room at some point in the next few weeks for the following procedures: 1. I and D of right hand under general anesthesia NPO at midnight for surgery tomorrow Continue IV antibiotics per Medicine Continue all other recommendations per Medicine Procedures Date of Service Date of Service: 05/18/24
--- NOTE | 2024-05-18 08:52 | PHA.MEDREC ---
Addendum entered by Pam Damon RPh 05/18/24 08:59: Reviewed by [facility]. Original Note: Pharmacy Consult ? Medication Reconciliation Pharmacy has completed the medication reconciliation. patient states he doesn't take any medications
--- NOTE | 2024-05-18 09:27 | MHC.CM.PN ---
CM spoke with Patient. DC plan is TBD; Patient has no PCP and no insurance ([facility] ended on 05/01/2024 & a [place] [facility] [place] Patient works at [employer] in [place].Patient will have surgery on his (R) hand abscess on 05/19/2024. Patient lives with his Parents and is independent. CM will follow.
[2024-05-18] MEDS: DAPTOmycin 400 MG in 0.9 % Sodium Chloride 50 ML 116 MG IV (11:37)
--- NOTE | 2024-05-18 11:56 | PM.EVENT ---
Event Note Date of Service: 05/18/24 Event Note: Arnaldo Graves is a 23 y/o man admitted with Right hand cellulitis. Continue empiric IV antibiotic therapy with vancomycin and Zosyn. Apply ice q shift. Motrin 600 mg PO tid. Orthopedic surgery> plan for I&D tomorrow Leukocytosis, secondary to above. Continue monitor. DVT prophylaxis: Low risk, ambulation Code status: Full Patient will need hospitalization for at least 2 midnights for IV antibiotic therapy and evaluation by Orthopedic surgery Service. Time Spent With Patient Time: Total time managing care of this patient today ____ minutes.
[2024-05-18] MEDS: Morphine Sulfate 2 MG/ML CARTRIDGE IVPUSH (12:25)
[2024-05-18] MEDS: oxyCODONE HCl Immed Release 5 MG TABLET PO (20:43)
--- NOTE | 2024-05-18 20:43 | PC.NURSE ---
Patient medicated with Tylenol as scheduled & Oxycodone 5mg PRN for thumb pain 8 out of 10. Patient requested Oxycodone instead of Morphine in conjunction with Tylenol administration. Patient was in no apparent distress. Admitting to med/surg floor shortly. Patient is on cell phone and was given the option of PRN Morphine vs Oxycodone, and chose Oxycodone.
[2024-05-19] VITALS (16 sets, daily range): BP systolic 113–137; BP diastolic 54–76; PULSE 67–112; RESP 12–18; TEMP 36.6–37.7; O2SAT 96–99
[2024-05-19] MEDS: Piperacillin Sodium/Tazobactam 3.375 GM in 0.9 % Sodium Chloride 50 ML IV ×4 (01:27→19:39)
[2024-05-19] MEDS: 0.9 % Sodium Chloride Flush 3 ML SYRINGE IVFLUSH ×2 (01:27→06:54)
[2024-05-19] MEDS: Morphine Sulfate 2 MG/ML CARTRIDGE IVPUSH ×3 (01:30→19:38)
[2024-05-19] MEDS: oxyCODONE HCl Immed Release 5 MG TABLET PO ×2 (06:54→12:58)
[2024-05-19 07:15] LABS: Creatinine Clr Calc Pharmacy 144.7; Estimated Glomerular Filt Rate > 60
--- NOTE | 2024-05-19 07:51 | HO.PM.IMPN ---
Subjective Subjective Date of Service: 05/19/24 Review of Systems Follow up right hand cellulitis and abscess pain no fever Physical Exam Vital Signs: Vital Signs: Last Vital Signs Temp 99.3 F 05/19/24 07:43 Pulse 85 05/19/24 07:43 Resp 16 05/19/24 07:43 BP 117/59 L 05/19/24 07:43 Pulse Ox 99 05/19/24 07:43 O2 Del Method Room Air 05/19/24 07:43 BMI result Body Mass Index 22.2 Appearing in no acute distress lung sounds are clear to auscultation heart regular rate rhythm, clear S1, S2 positive bowel sounds, abdomen is soft, nontender neuro patient is alert x3, no focal deficits Right hand edema Objective Data Active Medications Acetaminophen (Acetaminophen 325 Mg Tablet) 975 mg PO Q6H PRN PRN Reason: Pain, Mild 1-3,fever,headache Piperacillin Sod/Tazobactam (Sod 3.375 gm/ Sodium Chloride) 50 mls @ 100 mls/hr IV Q6H [facility] Last Infusion: 05/19/24 07:48 Dose: Infused Documented By: LICO Daptomycin 400 mg/ Sodium (Chloride) 58 mls @ 116 mls/hr IV Q24H [facility] Last Infusion: 05/18/24 12:12 Dose: Infused Documented By: LAQUITA Morphine Sulfate (Morphine Sulfate 2 Mg/Ml Cartridge) 2 mg IVPUSH Q4H PRN; Protocol PRN Reason: Pain, Severe (Pain Scale 7-10) Last Admin: 05/19/24 01:30 Dose: 2 mg Documented By: JUANCHO Oxycodone HCl (Oxycodone Hcl Immed Release 5 Mg Tablet) 5 mg PO Q6H PRN PRN Reason: Pain, Moderate(Pain Scale 4-6) Last Admin: 05/19/24 06:54 Dose: 5 mg Documented By: LICO Sodium Chloride (0.9 % Sodium Chloride Flush 3 Ml Syringe) 3 ml IVFLUSH QSHIFT [facility] Last Admin: 05/19/24 06:54 Dose: 3 ml Documented By: LICO Labs 05/18/24 04:14 05/19/24 06:21 Labs: Laboratory Results - last 24 hr 05/19/24 06:21 Estim Creat Clear Calc 144.7 Estimated GFR > 60 Microbiology Microbiology Results: Microbiology 05/17/24 19:51 Blood Culture - Preliminary Blood - Venous No growth after 24 hours. 05/17/24 19:50 Blood Culture - Preliminary Blood - Venous No growth after 24 hours. Assessment and Plan (1) Abscess of right hand: Status: Acute Plan 3-year-old man admitted with right hand cellulitis and abscess secondary to accident at home after building shelves Right hand cellulitis. Continue empiric IV antibiotic therapy with vancomycin and Zosyn. Apply ice q shift. Motrin 600 mg PO tid. Orthopedic surgery> plan for I&D today Leukocytosis, secondary to above. no sepsis Continue monitor. DVT prophylaxis: Low risk, ambulation Code status: Full Patient will need hospitalization for at least 2 midnights for IV antibiotic therapy and evaluation by Orthopedic surgery Service. Quality Stroke Does the patient have a stroke diagnosis?: No VTE Prior VTE?: No VTE Risk Level:: Medical - moderate - high VTE Device Contraindication: Treatment Not Indicated VTE Drug Contraindication: Treatment Not Indicated
[2024-05-19] MEDS: DAPTOmycin 400 MG in 0.9 % Sodium Chloride 50 ML 116 MG IV (11:19)
--- NOTE | 2024-05-19 14:34 | P.CONAN_ITS ---
Documented by User: Rona Alcantara MD 05/19/24 14:53 HPI - Anesthesia Eval Consult details Narrative: 23 yo male patient for I&D of Right hand PMFSH Active Problems Active Problems: All Active Problems (Updated 05/18/24 @ 08:53 by WARNER Castellanos) Abscess of right hand (Acute) Leukocytosis (Acute) Infection of hand (Acute) Occasional marijuana- last 2weeks ago Past Medical History Medical History No pertinent past medical history Family History Family history of problems with anesthesia: No Surgical History History of Problems with Anesthesia: No Social History Social History Household Members: Family Housing: House Are you a primary health care / medical job titles to a significant other at home: No Do you presently have visiting nurse or other home services: No Patient Tobacco Use Status: Never used Tobacco service: No Meds Allergies Allergy/AdvReac Type Severity Reaction Status Date / Time vancomycin Allergy Intermediate Hives Verified 05/19/24 14:26 Active Medications: Current Medications Acetaminophen (Acetaminophen 325 Mg Tablet) 975 mg PO Q6H PRN PRN Reason: Pain, Mild 1-3,fever,headache Piperacillin Sod/Tazobactam (Sod 3.375 gm/ Sodium Chloride) 50 mls @ 100 mls/hr IV Q6H [facility] Last Infusion: 05/19/24 13:38 Dose: Infused Morphine Sulfate (Morphine Sulfate 2 Mg/Ml Cartridge) 2 mg IVPUSH Q4H PRN; Protocol PRN Reason: Pain, Severe (Pain Scale 7-10) Last Admin: 05/19/24 11:19 Dose: 2 mg Oxycodone HCl (Oxycodone Hcl Immed Release 5 Mg Tablet) 5 mg PO Q6H PRN PRN Reason: Pain, Moderate(Pain Scale 4-6) Last Admin: 05/19/24 12:58 Dose: 5 mg Sodium Chloride (0.9 % Sodium Chloride Flush 3 Ml Syringe) 3 ml IVFLUSH QSHIFT MICHA Last Admin: 05/19/24 06:54 Dose: 3 ml Home Medications ?Medication ?Instructions ?Recorded ?Confirmed ?Last Taken ?Type No Known Home Meds 05/18/24 05/19/24 Unknown History Exam Height,Weight and Vital Signs: Height 5 ft 9 in Weight 68.3 kg Last Vital Signs Temp 99.2 F 05/19/24 14:27 Pulse 109 H 05/19/24 14:27 Resp 16 05/19/24 14:27 BP 126/76 05/19/24 14:27 Pulse Ox 99 05/19/24 14:27 O2 Del Method Room Air 05/19/24 14:27 Pertinent Lab Results Pertinent Lab Results: Laboratory Tests 05/17/24 05/17/24 05/18/24 19:49 19:50 04:14 WBC 12.2 H 10.9 H RBC 5.36 4.88 Hgb 16.2 14.9 Hct 46.5 43.2 MCV 86.8 88.5 MCH 30.2 30.5 MCHC 34.8 34.5 RDW 12.4 12.4 Plt Count 211 184 MPV 11.9 12.4 Immature Gran % (Auto) 0.3 0.3 Neut % (Auto) 76.3 H 71.6 Lymph % (Auto) 16.5 L 19.8 L [place] % (Auto) 6.0 6.8 Eos % (Auto) 0.6 1.2 Baso % (Auto) 0.3 0.3 Lymph # (Auto) 2.0 2.2 [place] # (Auto) 0.7 0.7 Eos # (Auto) 0.1 0.1 Baso # (Auto) 0.0 0.0 Abs Immat Gran (auto) 0.04 H 0.03 Absolute Neuts (auto) 9.3 H 7.8 Absolute Nucleated RBC 0.000 0.000 Nucleated RBC % (auto) 0.0 0.0 ESR 2 Sodium 140 138 Potassium 3.5 3.4 Chloride 105 106 Carbon Dioxide 26 24 Anion Gap 13 11 L BUN 13 14 Creatinine 1.02 0.86 Estim Creat Clear Calc 110.2 130.7 Estimated GFR > 60 > 60 Random Glucose 90 99 Lactic Acid 0.9 Uric Acid 6.7 Calcium 9.7 9.0 D Total Bilirubin 0.8 AST 24 ALT 15 Alkaline Phosphatase 68 C-Reactive Protein 0.48 Total Protein 8.2 H Albumin 4.8 05/19/24 06:21 WBC RBC Hgb Hct MCV MCH MCHC RDW Plt Count MPV Immature Gran % (Auto) Neut % (Auto) Lymph % (Auto) [place] % (Auto) Eos % (Auto) Baso % (Auto) Lymph # (Auto) [place] # (Auto) Eos # (Auto) Baso # (Auto) Abs Immat Gran (auto) Absolute Neuts (auto) Absolute Nucleated RBC Nucleated RBC % (auto) ESR Sodium Potassium Chloride Carbon Dioxide Anion Gap BUN Creatinine 0.78 Estim Creat Clear Calc 144.7 Estimated GFR > 60 Random Glucose Lactic Acid Uric Acid Calcium Total Bilirubin AST ALT Alkaline Phosphatase C-Reactive Protein Total Protein Albumin Assessment and Plan Final Anesthetic Review Family History of Problems with Anesthesia: No History of Problems with Anesthesia: No Documented by User: Sahara Torres MD 05/19/24 15:37 PMFSH Past Medical History Medical History No pertinent past medical history Social History Social History Household Members: Family Housing: House Are you a primary health care / medical job titles to a significant other at home: No Do you presently have visiting nurse or other home services: No Patient Tobacco Use Status: Never used Tobacco service: No Meds Allergies Allergy/AdvReac Type Severity Reaction Status Date / Time vancomycin Allergy Intermediate Hives Verified 05/19/24 14:26 Home Medications ?Medication ?Instructions ?Recorded ?Confirmed ?Last Taken ?Type No Known Home Meds 05/18/24 05/19/24 Unknown History Exam Airway Mallampati Class: II TM Dist: >3cm Neck ROM: Full Heart: rrr Assessment and Plan Assessment Anesthesia Assessment: Anesthesia Plan Discussed Final Anesthetic Review NPO: Yes ASA Class: II Final Preanesthetic Review: No Changes in Pt Med Stat, Meds/Allgs Chart Reviewed, Consent Obtained/Reviewed and Anes Risks/Benef Reviewed Patient Risk: Intermediate Procedure Risk: Low Anesthetic Plan Anesthetic Plan: GA Disposition: Standard PACU
--- NOTE | 2024-05-19 14:36 | PC.NURSE ---
Patient arrived to [facility] with one IV present, #20 L FA. Site asymptomatic, flushed well.
--- NOTE | 2024-05-19 14:39 | ECG_ITS ---
Test Reason : PREOP Blood Pressure : */* mmHG Vent. Rate : 98 BPM Atrial Rate : 98 BPM P-R Int : 146 ms QRS Dur : 136 ms QT Int : 382 ms P-R-T Axes : 69 94 20 degrees QTcB Int : 487 ms Normal sinus rhythm Right bundle branch block Abnormal ECG No previous ECGs available Referred By: Rona Alcantara Electronically Signed By: CARLOS HUDSON
--- NOTE | 2024-05-19 14:41 | PC.NURSE ---
Report given to prep nurse Shantel Cabrera RN.
--- NOTE | 2024-05-19 14:48 | MHC.CM.PN ---
Patient is planned for a debridement today. [facility] Home self care parents will transport.
--- NOTE | 2024-05-19 15:30 | PC.NURSE ---
EKG ordered per anesthesia. Completed. Pt note to have a new RBBB. Dr. Torres at bedside. Pt ok to proceed, will need new cardiology workup outpatient.
--- NOTE | 2024-05-19 15:35 | MHC.SHP ---
Pre-Procedural Eval Section A - 24 Hr Update-Section A only Date of Service: 05/19/24 The patient is an INPATIENT: Yes Changes since office visit: No Cold of Flu in the past 2 weeks, No New Medical Problems, No Changes in Medication and No Patient answered all questions The patient has been examined within 24 hours of the surgical procedure. The History & Physical has been completed within 30 days and I have reviewed it.: Yes Section B - Complete if H&P > 30 days Chief Complaint: Right hand cellulitis Allergies: Allergies Allergy/AdvReac Type Severity Reaction Status Date / Time vancomycin Allergy Intermediate Hives Verified 05/19/24 14:26 Exam Exam Comment: Pt with rt hand thenar space abscess good f/e of all digits including thumb IPJ sens intact painfull swelling and erythema palmar thenar mass and 1st web Plan Diagnosis/Plan: Unchanged I have reviewed the history and physical and performed a pertinent physical examination on my patient. No changes have occurred unless specified. Time Spent With Patient Time: Total time managing care of this patient today ____ minutes.
--- NOTE | 2024-05-19 15:38 | P.OP_ITS ---
Operative Note Operative Note Date of Service: 05/19/24 Narrative: Operative Note Narrative: Preop diagnosis: 1. Right hand thenar deep space infection/abscess Postop diagnosis: Same Procedure: 1. Right hand I&D of thenar space Surgeon: Erlinda Washington MD Geoscience Specialist: None Anesthesia: General Anesthesia [plus regional block] Findings: Copious amounts of creamy yellow purulence was found within the deep thenar space. No overlying wound preoperatively Implants: None Tourniquet time: 13 minutes EBL: 5.0 ml Specimen: Cultures of purulent drainage Drains: Iodoform gauze x1 Complications: None Disposition: Brought to the recovery room in stable condition Plan: Admit back to floor for IV antibiotics Pull drain and change dressing tomorrow and then daily Adjust antibiotics based on cultures Indications: The patient is a 23 year old young man with right thenar abscess . The risks and benefits of operative treatment, including but not limited to risk of damage to blood vessels, nerves, tendons, infection, recurrence, persistent pain or numbness, incomplete resolution of preoperative symptoms, or need for further surgery were discussed with the patient and they wished to proceed with surgery. Procedure: Once consent was obtained patient was brought back to the operating suite and placed in the operating table in a supine position. . Perioperative antibiotics and anesthesia was administered by the anesthesia team. A tourniqu et was applied to the proximal aspect of the right upper extremity and the limb was prepped and draped in a standard surgical fashion. The limb was elevated exsanguinated with Esmarch bandage and the tourniquet inflated to 250 mm of mercury for a total tourniquet time of 13 minutes. I made a 3 cm gently curved incision over the point of the abscess on the palmar side of the thenar mass. The incision was made through the skin the subcutaneous tissues using a 15. Blade. We immediately had copious amounts of creamy yellow purulence once we incised through the skin into the subcutaneous layer. The abscess extended deeply down into the deep thenar space. Cultures x2 were taken of the purulence and sent for Gram stain, A&A, AFB and fungus. We then performed an I&D of the thenar space. The thenar space was thoroughly irrigated with normal saline. At this point the tourniquet was deflated and hemostasis obtained with a brief period of local pressure. The wound was again copiously irrigated with normal saline. The skin edges were loosely reapproximated with 4-0 nylon suture. A single looped strip of iodoform gauze was placed within the wound to facilitate drainage. The wound was infiltrated with some 1% lidocaine with epinephrine for postop pain control and a sterile dressing was applied. The patient appears to have tolerated the procedure well and with no complications. All digits were well vascularized conclusion of the case.
--- NOTE | 2024-05-19 16:07 | P.CNID_ITS ---
History of Present Illness Data of Consult Service Date: 05/19/24 Requesting physician: Seda Clarke Primary Care Provider: None Physician HPI Reason for consult: right hand inflammation palm He presents with injury to hand on 05/08 while building shoe rack in closet. He hit hand with hammer. After this he had right hand pain and swelling in palm area. He is getting I and D per Orthopedics today. He is here with his sister and brother. He reports having had tetanus shot within last five years. He has no fever or chills Review of Systems 2 Review of Systems: Yes all other systems are reviewed and are negative [facility] Past Medical History Medical History No pertinent past medical history Social History Social History Household Members: Family Housing: House Are you a primary career placement services counselor to a significant other at home: No Do you presently have visiting nurse or other home services: No Patient Tobacco Use Status: Never used Tobacco service: No Meds Allergies Allergy/AdvReac Type Severity Reaction Status Date / Time vancomycin Allergy Intermediate Hives Verified 05/19/24 14:26 Active Medications: Current Medications Acetaminophen (Acetaminophen 325 Mg Tablet) 975 mg PO Q6H PRN PRN Reason: Pain, Mild 1-3,fever,headache Fentanyl (Fentanyl Citrate/Pf 100 Mcg/2 Ml Vial) 25 mcg IVPUSH Q5M PRN PRN Reason: Pain, Moderate to Severe (Pain Scale 4-10) Stop: 05/19/24 21:37 Piperacillin Sod/Tazobactam (Sod 3.375 gm/ Sodium Chloride) 50 mls @ 100 mls/hr IV Q6H [facility] Last Infusion: 05/19/24 13:38 Dose: Infused Lactated Ringer's (Lr) 1,000 mls @ 80 mls/hr IVCONT .[id number] [facility] Morphine Sulfate (Morphine Sulfate 2 Mg/Ml Cartridge) 2 mg IVPUSH Q4H PRN; Protocol PRN Reason: Pain, Severe (Pain Scale 7-10) Last Admin: 05/19/24 11:19 Dose: 2 mg Naloxone HCl (Naloxone Hcl 0.4 Mg/Ml Vial) 0.04 mg IVPUSH Q5M PRN PRN Reason: Excessive sedation or RR < 8 Ondansetron HCl (Ondansetron Hcl 4 Mg/2 Ml Vial) 4 mg IVPUSH ONCE PRN PRN Reason: Nausea and Vomiting Stop: 05/19/24 21:37 Oxycodone HCl (Oxycodone Hcl Immed Release 5 Mg Tablet) 5 mg PO Q6H PRN PRN Reason: Pain, Moderate(Pain Scale 4-6) Last Admin: 05/19/24 12:58 Dose: 5 mg Sodium Chloride (0.9 % Sodium Chloride Flush 3 Ml Syringe) 3 ml IVFLUSH [facility] Last Admin: 05/19/24 06:54 Dose: 3 ml Home Medications ?Medication ?Instructions ?Recorded ?Confirmed ?Last Taken ?Type No Known Home Meds 05/18/24 05/19/24 Unknown History Physical Exam 2 Vital Signs: Vital Signs: Last Vital Signs Temp 99.2 F 05/19/24 14:27 Pulse 109 H 05/19/24 14:27 Resp 16 05/19/24 14:27 BP 126/76 05/19/24 14:27 Pulse Ox 99 05/19/24 14:27 O2 Del Method Room Air 05/19/24 14:27 BMI result Body Mass Index 22.2 Const: General: cooperative HEENT: Head: Yes normal to inspection Face and sinus: Yes normal facial exam Mouth: Normal oral and palatal mucosa present Teeth and gingiva: d entition normal Eyes: General: appearance normal, both eyes and all related structures P upils: Equal, round and reactive pupils present Resp: Effort & Inspection: normal respiratory effort Cardio: Rate: regular rate Rhythm: regular rhythm GI: Palpation (GI): Soft to palpation and nontender : General: Yes no CVA tenderness Back/Spine/Pelvis: Back: no CVA tenderness Skin: General skin exam: no rashes or lesions noted Neuro: General: moves all extremities Cranial nerves: Yes Equal, round and reactive pupils present Extrem: Other: swelling right palm,redness General: Yes normal to inspection Psych: Appearance: grossly normal Results Labs 05/18/24 04:14 05/19/24 06:21 Labs: BMP 05/19/24 06:21 Creatinine 0.78 Microbiology Microbiology Results: Microbiology 05/17/24 19:51 Blood - Venous Blood Culture - Preliminary No growth after 24 hours. 05/17/24 19:50 Blood - Venous Blood Culture - Preliminary No growth after 24 hours. Assessment and Plan (1) Abscess of right hand: Status: Acute (2) Leukocytosis: Qualifiers: Leukocytosis type: unspecified Qualified Code(s): D72.829 - Elevated white blood cell count, unspecified Status: Acute (3) Infection of hand: Status: Acute Plan He has had some exposure to wood and possibly water. There are possibly gram positive and gram negatives,less likely but possibly fungus. Would continue Zosyn and Vancomycin (stop Daptomycin). Await cultures now via OR. Duration antibiotics to be determined (possible Augmentin and Doxycycline for two weeks if no OM)
[2024-05-19] MEDS: fentaNYL citrate/PF 100 MCG/2 ML VIAL 25 MCG IVPUSH ×4 (16:49→17:05)
[2024-05-19] MEDS: Lactated Ringers 1,000 ML 80 ML IVCONT (17:35)
[2024-05-20] MEDS: Piperacillin Sodium/Tazobactam 3.375 GM in 0.9 % Sodium Chloride 50 ML IV ×4 (01:25→19:58)
[2024-05-20] MEDS: 0.9 % Sodium Chloride Flush 3 ML SYRINGE IVFLUSH ×3 (01:34→20:25)
[2024-05-20 04:00] VITALS: BP 109/56; PULSE 92; RESP 16; TEMP 36.7; O2SAT 97
--- NOTE | 2024-05-20 07:34 | PM.PNORT ---
Subjective Subjective Date of Service: 05/20/24 Interval history: 23-year-old male postop day 1 status post I and D of the right hand Patient resting comfortably in bed this morning Pain well-controlled Patient reports symptoms have improved since surgery No acute events overnight No other acute complaints or concerns this time Physical Exam Vital Signs: Vital Signs: Last Vital Signs Temp 98.1 F 05/20/24 04:00 Pulse 92 05/20/24 04:00 Resp 16 05/20/24 04:00 BP 109/56 L 05/20/24 04:00 Pulse Ox 97 05/20/24 04:00 O2 Del Method Room Air 05/20/24 04:00 BMI result Body Mass Index 22.2 Extrem: Other: Dressing on right hand clean, dry, intact No evidence of surrounding erythema, ecchymosis No evidence of infection Patient is able to flex and extend the digits of the right hand without difficulty Distal sensation intact Capillary refill brisk Procedures Date of Service Date of Service: 05/20/24 Progress Note: A&P Assessment and plan (1) Abscess of right hand: Status: Acute Plan 1.Right hand abscess s/p I&D DOS 05/19/24 Patient appears to be recovering well postoperatively Patient is educated about the typical recovery course Due to the late timing of surgery yesterday, dressing is to remain in place with packing in the wound per Dr. Washington Packing will be pulled and dressing change this afternoon Dressing should remain clean, dry, intact Continue IV antibiotics per Medicine Continue with all other recommendations per Medicine Orthopedics will continue to follow Time Spent With Patient Time: Total time managing care of this patient today ____ minutes. Quality Stroke Does the patient have a stroke diagnosis?: No VTE Prior VTE?: No VTE Risk Level:: Medical - moderate - high VTE Device Contraindication: Treatment Not Indicated VTE Drug Contraindication: Treatment Not Indicated
[2024-05-20 08:00] VITALS: BP 112/57; PULSE 83; RESP 16; TEMP 36.8; O2SAT 98
[2024-05-20] MEDS: Lactated Ringers 1,000 ML 80 ML IVCONT (08:21)
[2024-05-20] MEDS: oxyCODONE HCl Immed Release 5 MG TABLET PO (08:29)
--- NOTE | 2024-05-20 08:30 | HO.POSTANES ---
Post Anesthesia Evaluation Post Anesthesia Evaluation Date of Service: 05/20/24 Vital Signs: Vital Signs Temp Pulse Resp BP Pulse Ox O2 Del Method 05/20/24 08:00 98.3 F 83 16 112/57 L 98 Room Air 05/20/24 04:00 98.1 F 92 16 109/56 L 97 Room Air 05/19/24 23:58 99.2 F 98 18 113/54 L 96 Anesthesia: General LMA Mental Status: Awake Pain Control: Satisfactory Nausea/Vomiting: None Hydration: Adequate Anesthesia-Related Issues: No Anes. Related Issues
[2024-05-20 08:56] LABS: Creatinine Clr Calc Pharmacy 156.7; Estimated Glomerular Filt Rate > 60
[2024-05-20] MEDS: Doxycycline Hyclate 100 MG in 0.9 % Sodium Chloride 250 ML 166.67 MG IV ×2 (10:54→20:25)
[2024-05-20 11:31] VITALS: BP 107/57; PULSE 81; RESP 18; TEMP 36.7; O2SAT 100
--- NOTE | 2024-05-20 14:38 | P.PNIM_ITS ---
Subjective Subjective Date of Service: 05/20/24 Interval History: Seen and examined this morning Follow-up for hand infection Afebrile, pain controlled Review of Systems Review of Systems: Yes all other systems are reviewed and are negative Constitutional Constitutional: Denies chills and Denies fever(s) Physical Exam 2 Vital Signs: Vital Signs: Last Vital Signs Temp 98.1 F 05/20/24 11:31 Pulse 81 05/20/24 11:31 Resp 18 05/20/24 11:31 BP 107/57 L 05/20/24 11:31 Pulse Ox 100 05/20/24 11:31 O2 Del Method Room Air 05/20/24 11:31 BMI result Body Mass Index 22.2 Const: General: comfortable, no acute distress, alert and awake Nutritional Appearance: average body habitus Orientation/consciousness: patient oriented x3 Resp: Effort & Inspection: normal respiratory effort and able to speak in complete sentences Cardio: Rate: regular rate GI: Palpation (GI): Soft to palpation Neuro: General: patient oriented x3 Extrem: Other: right hand wrapped in c/d/i dressing Objective Data Active Medications Acetaminophen (Acetaminophen 325 Mg Tablet) 975 mg PO Q6H PRN PRN Reason: Pain, Mild 1-3,fever,headache Piperacillin Sod/Tazobactam (Sod 3.375 gm/ Sodium Chloride) 50 mls @ 100 mls/hr IV Q6H [facility] Last Infusion: 05/20/24 10:12 Dose: Infused Documented By: YUNG Lactated Ringer's (Lr) 1,000 mls @ 80 mls/hr IVCONT .[id number] [facility] Last Admin: 05/20/24 08:21 Dose: 80 mls/hr Documented By: YUNG Doxycycline Hyclate 100 mg/ (Sodium Chloride) 250 mls @ 166.67 mls/hr IV Q12H [facility] Last Infusion: 05/20/24 12:30 Dose: Infused Documented By: YUNG Morphine Sulfate (Morphine Sulfate 2 Mg/Ml Cartridge) 2 mg IVPUSH Q4H PRN; Protocol PRN Reason: Pain, Severe (Pain Scale 7-10) Last Admin: 05/19/24 19:38 Dose: 2 mg Documented By: FLAKITO Naloxone HCl (Naloxone Hcl 0.4 Mg/Ml Vial) 0.04 mg IVPUSH Q5M PRN PRN Reason: Excessive sedation or RR < 8 Oxycodone HCl (Oxycodone Hcl Immed Release 5 Mg Tablet) 5 mg PO Q6H PRN PRN Reason: Pain, Moderate(Pain Scale 4-6) Last Admin: 05/20/24 08:29 Dose: 5 mg Documented By: YUNG Sodium Chloride (0.9 % Sodium Chloride Flush 3 Ml Syringe) 3 ml IVFLUSH QSHIFT [facility] Last Admin: 05/20/24 08:20 Dose: 3 ml Documented By: YUNG Labs 05/18/24 04:14 05/20/24 07:58 Labs: Laboratory Results - last 24 hr 05/20/24 07:58 Hold Purple Top SEE NOTE Estim Creat Clear Calc 156.7 Estimated GFR > 60 Microbiology Microbiology Results: Microbiology 05/19/24 16:11 Gram Stain - Final Hand Right Routine Culture - Preliminary Staphylococcus aureus Anaerobic Culture - Preliminary Culture in progress. 05/19/24 16:11 Gram Stain - Final Hand Right Routine Culture - Preliminary Staphylococcus aureus Anaerobic Culture - Preliminary Culture in progress. 05/17/24 19:51 Blood Culture - Preliminary Blood - Venous No growth after 48 hours. 05/17/24 19:50 Blood Culture - Preliminary Blood - Venous No growth after 48 hours. Assessment and Plan (1) Abscess of right hand: Status: Acute Plan 23-year-old man admitted with right hand cellulitis and abscess secondary to accident at home after building shelves Right hand cellulitis with abscess s/p I&D in OR 05/19 Initially treated with IV vancomycin and Zosyn, after initial dose of vancomycin began having hives and was changed to daptomycin. d/w ID, will stop dapto and change to doxycycline and continue zosyn ortho following wound cultures pending seen by ID, possible discharge with PO doxy and augmentin for two weeks depending on culture results Leukocytosis, secondary to above. trending down DVT prophylaxis: Low risk, ambulation Code status: Full Patient will need hospitalization for at least 2 midnights for IV antibiotic therapy and evaluation by Orthopedic surgery Service. Quality Stroke Does the patient have a stroke diagnosis?: No VTE Prior VTE?: No VTE Risk Level:: Medical - moderate - high VTE Device Contraindication: Treatment Not Indicated VTE Drug Contraindication: Treatment Not Indicated
[2024-05-20 15:41] VITALS: BP 121/59; PULSE 108; RESP 18; TEMP 37.3; O2SAT 98
--- NOTE | 2024-05-20 16:52 | ECG_ITS ---
Test Reason : CP Blood Pressure : */* mmHG Vent. Rate : 87 BPM Atrial Rate : 87 BPM P-R Int : 150 ms QRS Dur : 138 ms QT Int : 382 ms P-R-T Axes : 64 91 27 degrees QTcB Int : 459 ms Normal sinus rhythm Right bundle branch block Abnormal ECG When compared with ECG of 19-May-2024 14:55, No significant change was found Referred By: Francisca Fowler Electronically Signed By: CARLOS HUDSON
[2024-05-20 19:22] VITALS: BP 102/55; PULSE 76; RESP 16; TEMP 37.4; O2SAT 98
[2024-05-20 23:48] VITALS: BP 120/59; PULSE 111; RESP 18; TEMP 36.7; O2SAT 96
[2024-05-21] MEDS: Piperacillin Sodium/Tazobactam 3.375 GM in 0.9 % Sodium Chloride 50 ML IV ×2 (01:41→07:19)
[2024-05-21] MEDS: oxyCODONE HCl Immed Release 5 MG TABLET PO ×2 (01:45→07:19)
[2024-05-21 03:41] VITALS: BP 108/55; PULSE 73; RESP 16; TEMP 37.2; O2SAT 97
[2024-05-21 06:29] LABS: Creatinine Clr Calc Pharmacy 141.1; Estimated Glomerular Filt Rate > 60
[2024-05-21] MEDS: Doxycycline Hyclate 100 MG in 0.9 % Sodium Chloride 250 ML 166.67 MG IV (07:18)
[2024-05-21 07:24] VITALS: BP 114/56; PULSE 75; RESP 18; TEMP 37.1; O2SAT 99
--- NOTE | 2024-05-21 11:32 | PM.DS ---
DS: Providers Provider Date of Service: 05/21/24 Date of admission: 05/18/24 01:23 Date of discharge: 05/21/24 Primary care physician: None Physician Consults: 05/18/24 01:51 Consult to Orthopedics Routine Consulting Provider: [facility] Reason for consultation: Right hand swelling (thenar area) Has provider been notified: No 05/18/24 10:00 Consult to Infectious Diseases Stat Consulting Provider: [facility] Reason for consultation: pt on dapto ,allergic to vanco had hives Attending physician on discharge: Addy Browning Discharging clinician: Francisca Fowler DS: Diagnosis Discharge Diagnosis (1) Abscess of right hand: Status: Acute DS: Summary Hospital Course Hospital Course: From H&P on the day of discharge Arnaldo Graves is a 23 years old man with home significant past medical history presents to the emergency department complaining of one-week history of right hand pain associated with swelling and redness. He stated prior to the symptoms he was pushing on a pole while building shelves last weekend. He denied discharges or associated wounds. He also denies fever or chills. He did not report any acute cardiopulmonary, gastrointestinal or genitourinary symptoms. In the ED, he was found to have normal vital signs. Blood workup is remarkable for leukocytosis of 12.2. Hemoglobin and platelets are normal. Electrolytes, renal function, uric acid, CRP and LFTs are normal. Right hand CXR showed both intact bones, no dislocation no arthritic changes no erosions or radiopaque foreign bodies. ED tx: Zosyn 3.375 g, ketorolac 15 mg IV, vancomycin 1750 mg IV Right hand cellulitis with abscess Initially treated with IV vancomycin and Zosyn, after initial dose of vancomycin began having hives and vanco was stopped and changed to daptomycin. patient was seen by ID and recommended to change dapto to doxycycline and continue zosyn. seen by orthopedic surgery and underwent I&D in OR 05/19. wound cultures growing MRSA sensitive to tetracyclines. Blood cultures have remained negative to date. Patient has had uncomplicated postoperative course, pain is adequately controlled and stable for discharge home. We will be discharged home with oral antibiotics to complete 2 weeks with plan to follow up with Orthopedic surgery in the office. Time Attestation Discharge Coordination Time (in mins): 36 Quality: Safe Use of Opioids Does Pt have an Active Cancer Diagnosis on the Problem List?: No Quality: Stroke Does the patient have a stroke diagnosis?: No Physical Exam Vital Signs: Vital Signs: Last Vital Signs Temp 98.7 F 05/21/24 07:24 Pulse 75 05/21/24 07:24 Resp 18 05/21/24 07:24 BP 114/56 L 05/21/24 07:24 Pulse Ox 99 05/21/24 07:24 O2 Del Method Room Air 05/21/24 07:24 BMI result Body Mass Index 22.2 Const: General: cooperative, alert, awake and Physically active Nutritional Appearance: average body habitus Orientation/consciousness: patient oriented x3 Skin: Other: right hand wrapped in clean, intact dressing Neuro: General: patient oriented x3 DS: Data Data Completed and Pending Labs on day of discharge: Laboratory Results - last 24 hr 05/21/24 05:38 Creatinine 0.80 Estim Creat Clear Calc 141.1 Estimated GFR > 60 Preliminary micro results at discharge 05/19/24 16:11 Anaerobic Culture - Preliminary Hand Right Culture in progress. 05/19/24 16:11 Anaerobic Culture - Preliminary Hand Right Culture in progress. 05/17/24 19:51 Blood Culture - Preliminary Blood - Venous No growth after 48 hours. 05/17/24 19:50 Blood Culture - Preliminary Blood - Venous No growth after 48 hours. Discharge Plan Discharge Anticipated Discharge Date/Time: 05/21/24 11:59 Patient Disposition: Home, Self-Care Discharge Diagnosis: cellulitis/abscess of right hand Referrals: Jimmy Donato PA [Physician Biometric Fingerprinting Technician] - 1 Week (05/24/24 09:00 [facility] Jimmy Donato PA) Physician,None [Primary Care Provider] - 1 Week Discharge Medications: New doxycycline monohydrate 100 mg tablet 100 mg PO BID 14 Days Qty: 28 0RF amoxicillin-pot clavulanate 875-125 mg tablet 1 tab PO Q12H 14 Days Qty: 28 0RF oxycodone 5 mg tablet 5 mg PO Q8H PRN (Reason: pain) Qty: 12 0RF Rx Instructions: Partial Fill upon patient request. Discharge Orders: Discharge Order (Routine); Ordered 05/21/24 Ordered By: Francisca Fowler Activity on Discharge: As tolerated Stand Alone Forms: Patient Portal Discharge page Print Language: Telugu Activity Restrictions/Additional Instructions: Daily dressing changes, and as needed for saturation Small amount of antibiotic ointment, gauze, Kerlix, Coban/Ba bandage Follow-up in 1 week in our office for repeat wound check Care Plan Goals: see below Health Concerns: right hand infection Plan of Treatment: Complete course of antibiotics as prescribed Daily dressing changes as above Follow-up in orthopedic office - call orthopedic office or return to ED with any worsening in redness, swelling or fever Assessment: See discharge summary
[2024-05-21 11:47] VITALS: BP 116/61; PULSE 77; RESP 16; TEMP 36.9; O2SAT 99
--- NOTE | 2024-05-21 12:43 | MHC.CM.PN ---
Patient is discharged to home selfcare. He will arrange for transportation home.
== END 2024-05-21 13:24 | disposition home or self-care (01) | DRG 364 ==
LOC: HO.ED 05-18 01:14 → HO.EDOVER 05-18 02:26 → HO.S3 05-18 19:40
PROVIDERS: Orthopaedic Surgery; Physician Assistant; Admitting Provider Internal Medicine; Emergency Provider Emergency Medicine; Visit Provider Physician Assistant Medical
PROC: 0J9J0ZZ Drainage of Right Hand Subcutaneous Tissue and Fascia, Open Approach (ICD-10-PCS; CPT 26025; principal; 2024-05-19 14:30)
DX: L02.511 Cutaneous abscess of right hand (principal); L03.113 Cellulitis of right upper limb; B95.62 Methicillin resistant Staphylococcus aureus infection as the cause of diseases classified elsewhere; L50.0 Allergic urticaria; T36.8X5A Adverse effect of other systemic antibiotics, initial encounter
CPT/HCPCS: 26025; 36415; 73110; 73130; 80048; 80053; 82565; 83605; 84550; 85025; 85652; 86140; 87040; 87070; 87073; 87077; 87102; 87116; 87147; 87186; 87205; 87206; 93005; 97165; 99221; 99285; J0878; J1200; J1885; J2003; J2004; J2250; J2270; J2371; J2405; J2543; J2704; J2795; J3010; J3370; J7120

== ENCOUNTER 2024-05-18 01:23 | Outpatient (BNV) | payer SELFPAY | END 2024-05-19 14:39 | PROVIDERS: Admitting Provider Internal Medicine; Emergency Provider Emergency Medicine; Visit Provider Internal Medicine | DX: R94.31 Abnormal electrocardiogram [ECG] [EKG] (principal) | CPT/HCPCS: 93010 ==

== ENCOUNTER 2024-05-18 01:23 | Outpatient (BNV) | payer SELFPAY | END 2024-05-20 16:52 | PROVIDERS: Admitting Provider Internal Medicine; Emergency Provider Emergency Medicine; Visit Provider Internal Medicine | DX: R94.31 Abnormal electrocardiogram [ECG] [EKG] (principal) | CPT/HCPCS: 93010 ==

== ENCOUNTER → 2024-05-18 01:23 | Outpatient (BNV) | payer SELFPAY | PROVIDERS: Admitting Provider Internal Medicine; Emergency Provider Emergency Medicine | DX: L02.511 Cutaneous abscess of right hand (principal) | CPT/HCPCS: 99222 ==

== ENCOUNTER → 2024-05-18 01:23 | Outpatient (BNV) | payer OTHER, SELFPAY | PROVIDERS: Admitting Provider Internal Medicine; Emergency Provider Emergency Medicine; Visit Provider Internal Medicine | DX: L02.511 Cutaneous abscess of right hand (principal) | CPT/HCPCS: 99222; 99232; 99499 ==

== ENCOUNTER → 2024-05-18 01:23 | Outpatient (BNV) | payer SELFPAY | PROVIDERS: Admitting Provider Internal Medicine; Emergency Provider Emergency Medicine; Visit Provider Internal Medicine | DX: L02.511 Cutaneous abscess of right hand (principal); D72.829 Elevated white blood cell count, unspecified; L08.9 Local infection of the skin and subcutaneous tissue, unspecified | CPT/HCPCS: 99222 ==

== ENCOUNTER 2024-05-24 14:51 | Outpatient (AMB) | payer MEDICAID, SELFPAY ==
--- NOTE | 2024-05-24 14:52 | A.OFFVIS_ITS ---
Intake Visit Reasons: PO - I&D of right hand Intake Note: Arnaldo is a 23 year old right hand dominant male who presents today post operatively s/p right hand I&D of thenar space DOS: 05/18/2024 w/ Dr Washington. Patient reports he is doing well. He is still having pain in his right hand. Denies numbness and tingling. Allergies vancomycin Allergy (Intermediate, Verified 06/02/24 09:32) Hives HPI HPI PO - I&D of right hand: Details: Arnaldo is a 23 year old right hand dominant male who presents today post operatively s/p right hand I&D of thenar space DOS: 05/18/2024 w/ Dr Washington. Patient reports he is doing well. He is still having pain in his right hand. Denies numbness and tingling. [facility] Medical History No pertinent past medical history Social History Household Members: Family Housing: House Are you a primary lawn care professional to a significant other at home: No Do you presently have visiting nurse or other home services: No Patient Tobacco Use Status: Never used Tobacco service: No Review of Systems Const All systems reviewed & are unremarkable except as noted in HPI and below Physical Exam Extrem Other: Patient is alert, oriented, and in no acute distress. Neuro: Normal sensation of the tips of all digits of the right hand at this time Vascular: Cap refill brisk Pain: No tenderness to palpation about the incision site of the right hand No pain with range of motion of the right hand ROM: Patient is able to flex and extend all digits of the right hand fully and without difficulty Skin: Well-healing incision site noted on the volar aspect of the thenar eminence of the right hand No lacerations or abrasions. General: No ecchymosis, erythema, or evidence of infection. Psych: Appears grossly normal Affect normal Attitude cooperative Assessment & Plan Assessment & Plan (1) Abscess of right hand: Code(s): L02.511 - Cutaneous abscess of right hand Category: Medical Plan 1 status post I and D of abscess of the right hand DOS 05/19/2024 Patient appears to be recovering very well postoperatively Patient is educated about the typical recovery course At this time, patient was informed that he will require no further antibiotic therapy, as he appears to have recovered well and there is no evidence of further ongoing infection Patient is also advised that he will not require any therapy at this time, as he is moving his hand very well Patient was advised he has a 2 lb weight restriction at work until follow-up Patient will follow-up in 1 weeks for reassessment, sooner with any acute concerns Coding Level of Care Code Global (98194) Diagnoses Abscess of right hand L02.511
== END 2024-05-24 15:19 | disposition home or self-care (01) ==
DX: L02.511 Cutaneous abscess of right hand (principal)
CPT/HCPCS: 99024

== ENCOUNTER → 2024-05-24 14:51 | Outpatient (BNVA) | payer SELFPAY | DX: L02.511 Cutaneous abscess of right hand (principal); Z98.890 Other specified postprocedural states | CPT/HCPCS: 99212 ==

== ENCOUNTER 2024-06-02 09:29 | Outpatient (AMB) | payer OTHER, SELFPAY ==
[2024-06-02 09:31] VITALS: BMI 22.1
--- NOTE | 2024-06-02 09:31 | A.OFFVIS_ITS ---
Vital Signs 06/02/24 09:31 Height 5 ft 9 in Weight 150 lb BMI 22.1 Intake Visit Reasons: PO - I&D of right hand Intake Note: Arnaldo is a 23 year old male who presents to the office today for a PO I&D of right hand. Pt states he is still taking the antibiotics and bob any pain,numbness, or tingling in his fingers or hand. Allergies vancomycin Allergy (Intermediate, Verified 06/02/24 09:32) Hives HPI HPI PO - I&D of right hand: Details: Patient is a 23-year-old male who presents for postoperative evaluation status post I and D of the right hand. Patient reports he is doing well, and experiences no pain in the right hand at this time. Patient does report that there is some slight redness around the incision site, but this is due to the top layer of skin falling off after surgery. Denies any numbness or tingling in the right hand. No other acute complaints or concerns at this time. [facility] Medical History No pertinent past medical history Social History Household Members: Family Housing: House Are you a primary social worker palliative care to a significant other at home: No Do you presently have visiting nurse or other home services: No Patient Tobacco Use Status: Never used Tobacco service: No Review of Systems Const All systems reviewed & are unremarkable except as noted in HPI and below Physical Exam Vital Signs: BMI result Body Mass Index 22.1 Extrem Other: Patient is alert, oriented, and in no acute distress. Neuro: Normal sensation of the tips of all digits of the right hand at this time Vascular: Cap refill brisk Pain: No tenderness to palpation about the incision site of the right hand No pain with range of motion of the right hand ROM: Patient is able to flex and extend all digits of the right hand fully and without difficulty Skin: Well-healed incision site noted on the volar aspect of the thenar eminence of the right hand No lacerations or abrasions. General: No ecchymosis, erythema, or evidence of infection. Psych: Appears grossly normal Affect normal Attitude cooperative Assessment & Plan Assessment & Plan (1) Abscess of right hand: Code(s): L02.511 - Cutaneous abscess of right hand Category: Medical Plan 1 status post I and D of abscess of the right hand DOS 05/19/2024 Patient appears to be recovering very well postoperatively Patient is educated about the typical recovery course At this time, patient was informed that he will require no further antibiotic therapy, as he appears to have recovered well and there is no evidence of further ongoing infection Patient is also advised that he will not require any therapy at this time, as he is moving his hand very well Patient was advised he has a 15 lb weight restriction at work until follow-up Patient will follow-up in 2 weeks for reassessment, sooner with any acute concerns Coding Level of Care Code Global (53536) Diagnoses Abscess of right hand L02.511
== END 2024-06-02 09:42 | disposition home or self-care (01) ==
DX: L02.511 Cutaneous abscess of right hand (principal)
CPT/HCPCS: 99024

== ENCOUNTER → 2024-06-02 09:29 | Outpatient (BNVA) | payer MEDICAID, SELFPAY | DX: Z48.817 Encounter for surgical aftercare following surgery on the skin and subcutaneous tissue (principal); Z98.890 Other specified postprocedural states | CPT/HCPCS: 99212 ==

== ENCOUNTER → 2024-06-16 13:11 | Outpatient (BNVA) | payer OTHER, SELFPAY | DX: Z48.817 Encounter for surgical aftercare following surgery on the skin and subcutaneous tissue (principal); Z98.890 Other specified postprocedural states | CPT/HCPCS: 99212 ==